=== PATIENT | female | born 2000 | race Caucasian/White ===

== ENCOUNTER 2023-07-19 23:44 | Emergency (ER) | payer MEDICAID ==
[~2023-07-19] VITALS: Ht 170.2 cm; Wt 91.0 kg
[2023-07-19 23:49] VITALS: O2SAT 98
[2023-07-20 00:58] LABS: BASOPHILS % 0.5 % (0.0-2.0); EOSINOPHILS % 0.9 % (0.0-5.0); HEMATOCRIT. 43.8 % (36.0-48.0); LYMPHOCYTES % 46.1 % (20.0-50.0); MEAN CORPUSCULAR HEMOGLOBIN 31.4 pg (28.0-32.0); MEAN CORPUSCULAR HGB CONC 34.3 g/dL (31.0-37.0); MEAN CORPUSCULAR VOLUME 91.4 fL (81.0-99.0); MEAN PLATELET VOLUME 7.6 fl (7.4-10.4); MONOCYTES % 5.5 % (2.0-8.0); PLATELET 347 x1000/uL (130-400); RED BLOOD CELL COUNT 4.79 mill/uL (4.2-5.4); RED CELL DISTRIBUTION WIDTH 12.9 % (11.6-14.6); WHITE BLOOD COUNT 9.6 x1000/uL (4.5-11.0)
[2023-07-20 01:03] LABS: CHLORIDE 108 mEq/L (98-107); POTASSIUM 3.5 mEq/L (3.5-5.1); SODIUM 143 mEq/L (136-145)
[2023-07-20 01:04] LABS: CALCIUM 10.2 mg/dL (8.7-10.4); CARBON DIOXIDE 26 mEq/L (21-32)
[2023-07-20 01:09] LABS: CREATININE 0.8 mg/dL (0.6-1.0); ETHANOL BLOOD 129 mg/dL (<10); GLUCOSE 79 mg/dL (70-105); UREA NITROGEN BLOOD 12 mg/dL (9-23)
[2023-07-20 01:10] LABS: AMMONIA < 17 uMol/L (<32)
[2023-07-20 01:11] LABS: ACETAMINOPHEN < 2 ug/mL (10-30); ALANINE AMINOTRANSFERASE 15 IU/L (10-49); ASPARTATE AMINOTRANSFERASE 19 IU/L (<34); BILIRUBIN TOTAL 0.2 mg/dL (0.1-1.0); PROTEIN TOTAL 8.4 g/dL (6.0-8.3)
[2023-07-20 02:04] LABS: HCG SCREEN NEGATIVE
[2023-07-20] MEDS: SODIUM CHLORIDE 0.9% 1,000 ML IV NR (02:45)
[2023-07-20] MEDS: SODIUM CHLORIDE 0.9% 1,000 ML IV ONE (04:28)
[2023-07-20] MEDS: METOCLOPRAMIDE HCL 10MG/2ML VIAL IV ONE (04:29)
[2023-07-20 05:43] VITALS: BP 105/59; PULSE 84; RESP 20; TEMP 98.6
== END 2023-07-20 05:47 | disposition home or self-care (01) ==
LOC: ER 23:51
DX: F10.129 Alcohol abuse with intoxication, unspecified (principal); R41.82 Altered mental status, unspecified; F32.9 Major depressive disorder, single episode, unspecified; Y90.6 Blood alcohol level of 120-199 mg/100 ml
CPT/HCPCS: 36415; 99285; 80053; 80307; 80329; 80320; 82140; 84703; 83690; 85025; 70450; 96361; 96374; J2765; J7030; Z7610 ×3; G0480